=== PATIENT | male | born 1985 | race American Indian/Alaskan Native ===

== ENCOUNTER 2019-08-29 23:03 | Emergency (ER) | payer SELFPAY ==
[2019-08-29] MEDS ORDERED: oxyCODONE /ACETAMINOPHEN 5-325MG TAB PO ONE (23:11)
[2019-08-29] MEDS ORDERED: ONDANSETRON 4 MG ODT TAB PO ONE (23:11)
[2019-08-29] MEDS ORDERED: TETANUS,DIPH,PERTUSS(ACELL) VACCINE 0.5 ML SYRINGE IM ONE (23:12)
[2019-08-29] MEDS ORDERED: ONDANSETRON 4 MG ODT TAB ONE (23:13)
[2019-08-29] MEDS ORDERED: oxyCODONE /ACETAMINOPHEN 5-325MG TAB ONE (23:14)
--- NOTE | 2019-08-29 23:15 | Event Note ---
ED Screening Note ED Screening Note: large laceration to the thumb unable to flex the thumb/adduct given zofran/oxycodone will send to MAIN for further eval This initial assessment/diagnostic orders/clinical plan/treatment(s) is/are subject to change based on patients health status, clinical progression and re- assessment by fellow clinical providers in the ED. Further treatment and workup at subsequent clinical providers discretion. Patient/guardian urged not to elope from the ED as their condition may be serious if not clinically assessed and managed.
--- NOTE | 2019-08-30 01:39 | Emergency Department Report ---
Blank Doc - Documentation Documentation: Picked up the chart once it arrived to the main ED side. I have lupus patient and his room for the last hour. Also looked in bathrooms. Patient has apparently eloped. Patient has not been seen by me.
== END 2019-08-30 01:30 | disposition left against medical advice (07) ==
LOC: ED 23:03
DX: M79.601 Pain in right arm (principal); Z53.21 Procedure and treatment not carried out due to patient leaving prior to being seen by health care provider
CPT/HCPCS: Q0162

== ENCOUNTER 2019-08-31 15:47 | Emergency (ER) | payer SELFPAY ==
[2019-08-31 15:53] VITALS: BP 142/95
[2019-08-31] MEDS ORDERED: TETANUS,DIPH,PERTUSS(ACELL) VACCINE 0.5 ML SYRINGE IM ONE (16:08)
[2019-08-31] MEDS ORDERED: CLINDAMYCIN 150 MG/ML VIAL 6 ML IM ONE (16:10)
[2019-08-31] MEDS ORDERED: NEOMY 3.5 MG/BACIT 400 UNITS/POLY B 5000 UNITS/GM OINT PACKET TP ONE (16:46)
--- NOTE | 2019-08-31 16:51 | Emergency Department Report ---
ED Laceration HPI - HPI Chief Complaint: Wound/Laceration Stated Complaint: (R) HAND WOUND Time Seen by Provider: 08/31/19 16:02 Occurred When: Before Yesterday Location: Upper Extremity (right hand) Severity: mild Tetanus Status: Not up to Date Laceration Symptoms: Yes Pain, No Foreign Body Sensation, No Numbness, No Weakness Other History: This is a 33-year-old male who presents to ED 48 hours after laceration to the right palm. Patient states he was here yesterday and left the ER without being seen because his ride was here and he had to go. Patient states tetanus is not up to date. ED Review of Systems ROS: Stated complaint: (R) HAND WOUND Other details as noted in HPI Comment: All other systems reviewed and negative ED Past Medical Hx - Past Medical History Previous Medical History?: No - Surgical History Past Surgical History?: No - Social History Smoking Status: Never Smoker Substance Use Type: None - Medications Home Medications: Home Medications Medication Instructions Recorded Confirmed Last Taken Type Ibuprofen [Motrin] 800 mg PO Q8HR #30 tablet 08/31/19 Unknown Rx Neomycin/Bacitracin/Polymyxinb 1 applic TP TID #1 tube 08/31/19 Unknown Rx [Triple Antibiotic Ointment] cephALEXin [Keflex] 500 mg PO Q8HR #21 cap 08/31/19 Unknown Rx Laceration Physical Exam - Exam General: Vital signs noted. No distress. Alert and acting appropriately. Wound Length (cm): 5 Laceration Location: Upper Extremity Laceration Exam: No Foreign Body, No Exposed Tendon, Vessel, or Nerve ED Course Vital Signs 08/31/19 15:50 Temperature 98.3 F Pulse Rate 74 Respiratory 18 Rate Blood Pressure 142/95 O2 Sat by Pulse 98 Oximetry ED Medical Decision Making - Medical Decision Making 33 y o male presentys with laceration to the palm of right hand Discussed with pt that it has been over 48 hours since lac therefore laceration cannot be sutured. Laceration was cleaned. Triple antibiotic ointment applied to the wound. Wound was sterilely wrapped Laceration Wound looks already healing. Pt received tetanus booster and clindamycin 600 mg in the ED Discussed f/u in 3 days for wound check. he understands instructions. Vital signs are normal patient is in no acute distress. Critical care attestation.: If time is entered above; I have spent that time in minutes in the direct care of this critically ill patient, excluding procedure time. ED Disposition Clinical Impression: Laceration of hand Disposition: DC-01 TO HOME OR SELFCARE Is pt being admited?: No Does the pt Need Aspirin: No Condition: Stable Instructions: Laceration (ED), Acute Wound Care (ED), Abrasion (ED) Additional Instructions: follow up with pcp 3 days for wound check Prescriptions: cephALEXin [Keflex] 500 mg PO Q8HR #21 cap Ibuprofen [Motrin] 800 mg PO Q8HR #30 tablet Neomycin/Bacitracin/Polymyxinb [Triple Antibiotic Ointment] 1 applic TP TID #1 tube Referrals: PRIMARY CARE, [Primary Care Provider] - 3-5 Days [facility] [Outside] - 3-5 Days [facility] [Outside] - 3-5 Days [facility] [Outside] - 3-5 Days Forms: Accompanied Note, Work/School Release Form(ED) Time of Disposition: 16:57
== END 2019-08-31 17:15 | disposition home or self-care (01) ==
LOC: ED 15:47
DX: S61.411A Laceration without foreign body of right hand, initial encounter (principal); X58.XXXA Exposure to other specified factors, initial encounter; Y93.89 Activity, other specified; Y92.89 Other specified places as the place of occurrence of the external cause; Y99.8 Other external cause status
CPT/HCPCS: 90471; 90715; 96372; A6250

== ENCOUNTER 2020-11-15 15:11 | Emergency (ER) | payer OTHER ==
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
[2020-11-15 15:20] VITALS: BP 143/105
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
== END 2020-11-15 16:30 | disposition home or self-care (01) ==
LOC: ED 15:11
DX: S66.911A Strain of unspecified muscle, fascia and tendon at wrist and hand level, right hand, initial encounter (principal); Z79.899 Other long term (current) drug therapy; V49.49XA Driver injured in collision with other motor vehicles in traffic accident, initial encounter; Y93.89 Activity, other specified; Y92.488 Other paved roadways as the place of occurrence of the external cause; Y99.8 Other external cause status
CPT/HCPCS: 99283